=== PATIENT | female | born 1950 | race Caucasian/White ===

== ENCOUNTER 2017-07-07 12:28 | Emergency (ER) | payer MEDICARE ==
[~2017-07-07] VITALS: Ht 162.6 cm; Wt 106.0 kg
[2017-07-07] MEDS ORDERED: IOHEXOL 350 MG/ML 10 ML VIAL (for RAD DIAG) IVCONTRAST ONE (12:29)
[2017-07-07 12:38] VITALS: BP 140/77; PULSE 83; RESP 17; TEMP 98.2; O2SAT 97
[2017-07-07] MEDS ORDERED: VENL75TA PO (12:38)
[2017-07-07] MEDS ORDERED: OMEP10CA PO (12:38)
[2017-07-07] MEDS ORDERED: LEVO137T2 PO (12:38)
[2017-07-07] MEDS ORDERED: COQ-30CA2 PO (12:38)
[2017-07-07] MEDS ORDERED: LISI10TA PO (12:38)
[2017-07-07] MEDS ORDERED: LIDOCAINE HCL 1% 50 ML VIAL INFIL ONE (12:45)
[2017-07-07] MEDS ORDERED: TETANUS/DIPHTHERIA TOXOID ADULT 0.5 ML VIAL IM ONE (12:45)
--- NOTE | 2017-07-07 12:56 | PD ---
HPI Chief Complaint: Fall Time Seen by Provider: 12:36 Travel History International Travel<30 days: No Contact w/Intl Traveler<30days: No Traveled to known affect area: No History of Present Illness HPI 66-year-old female that presents to the ED for evaluation of fall. Patient had a mechanical fall today. Per patient she lost her balance will trying to load a car and none on the back of her head. She's been having pain in the back of the head. She did not lose consciousness. She states that she was not allowed to get up on her own by her friends on the ambulance and was put on a backboard and cervical collar. Per patient she has no neck or back pain. Per patient on her pain is in the back of the head. She did suffer a possible laceration to the back of her head. Per patient her headache currently 6 out of 10. She has a history of chronic arthritis. She denies any blurry vision or double vision. No back pain. No leg or arm pain. Per patient she has no other medical issues. Takes no blood thinners. Unclear of her last tetanus booster. Has not seen anybody for this. Other medical issues. Injury occurred one hour before coming. PFSH Past Medical History Hx Anticoagulant Therapy: No Arthritis: Yes High Cholesterol: Yes Hypertension: Yes Thyroid Disease: Yes Tetanus Vaccination: Unknown Influenza Vaccination: Yes Past Surgical History Abdominal Surgery: Yes (hernia repair) Genitourinary Surgery: Yes (bladder sx) Hysterectomy: Yes Tonsillectomy: Yes Social History Alcohol Use: Yes (vodka) Tobacco Use: No Substance Use: No Allergies-Medications (Allergen,Severity, Reaction): Coded Allergies: No Known Allergies (Unverified , 07/07/17) Reported Meds & Prescriptions Reported Meds & Active Scripts Active Reported Coq-10 (Coenzyme Q10 (Ubidecarenone)) 30 Mg Cap Unknown Dose PO DAILY Omeprazole 10 Mg Cap 10 Mg PO DAILY Effexor (Venlafaxine HCl) 75 Mg Tab 75 Mg PO DAILY Lisinopril-Hctz 10-12.5 Mg Tab 1 Tab PO DAILY Levothyroxine (Levothyroxine Sodium) 137 Mcg Tab 137 Mcg PO DAILY Review of Systems Except as stated in HPI: all other systems reviewed are Neg Physical Exam Narrative GENERAL: SKIN: Warm and dry. HEAD: Atraumatic. Normocephalic. EYES: Pupils equal and round 4 mms reactive to light and accommodation.. No scleral icterus. No injection or drainage. ENT: No nasal bleeding or discharge. Mucous membranes pink and moist. Tongue is midline. No uvula deviation. NECK: Trachea midline. No JVD. CARDIOVASCULAR: Regular rate and rhythm. RESPIRATORY: No accessory muscle use. Clear to auscultation. Breath sounds equal bilaterally. GASTROINTESTINAL: Abdomen soft, non-tender, nondistended. Hepatic and splenic margins not palpable. MUSCULOSKELETAL: Extremities without clubbing, cyanosis, or edema. No obvious deformities. No thoracic or lumbar spine tenderness to palpation. Patient does have some reproducible pain on the musculature of the cervical spine but not the spine itself. Patient does have a superficial abrasion to the back of the head that is less than 1 cm in diameter with no laceration noted. Minimal bleeding noted. Slightly tender to touch with swelling noted. Full range of motion of the upper and lower extremity bilaterally with no pain. NEUROLOGICAL: Awake and alert. No obvious cranial nerve deficits. Motor grossly within normal limits. Five out of 5 muscle strength in the arms and legs. Normal speech. PSYCHIATRIC: Appropriate mood and affect; insight and judgment normal. Data Data Last Documented VS Vital Signs Date Time Temp Pulse Resp B/P (MAP) Pulse Ox O2 Delivery O2 Flow Rate FiO2 07/07/17 16:54 95 20 137/67 (90) 97 Room Air 07/07/17 12:[address] Brain W/O Iv Contrast(Rout) (07/07/17 12:37) Ct Cerv Spine W/O Contrast (07/07/17 12:37) Tetanus/Diphtheria Tox Adult (Tetanus/Di (07/07/17 12:45) Lidocaine 1% Inj (50 Ml) (Xylocaine 1% I (07/07/17 12:45) Wound Care (07/07/17 12:39) Ibuprofen (Motrin) (07/07/17 13:30) Lidocaine 1% Inj (Xylocaine 1% Inj) (07/07/17 13:45) Complete Blood Count With Diff (07/07/17 14:05) Basic Metabolic Panel (Bmp) (07/07/17 14:05) Prothrombin Time / Inr (Pt) (07/07/17 14:05) Act Partial Throm Time (Ptt) (07/07/17 14:05) Magnesium (Mg) (3/22/18 14:05) Cta Neck W Iv Contrast W 3d (07/07/17 ) Cta Brain W Iv Contrast W 3d (07/07/17 ) Iohexol 350 Inj (Omnipaque 350 Inj) (07/07/17 12:29) Ed Discharge Order (07/07/17 18:01) Ibuprofen (Motrin) (07/07/17 18:15) Ed Discharge Order (07/07/17 18:03) Labs Laboratory Tests Test 07/07/17 14:40 White Blood Count 11.7 TH/MM3 Red Blood Count 4.36 MIL/MM3 Hemoglobin 14.1 GM/DL Hematocrit 41.1 % Mean Corpuscular Volume 94.4 FL Mean Corpuscular Hemoglobin 32.4 PG Mean Corpuscular Hemoglobin Concent 34.4 % Red Cell Distribution Width 12.8 % Platelet Count 218 TH/MM3 Mean Platelet Volume 8.2 FL Neutrophils (%) (Auto) 80.6 % Lymphocytes (%) (Auto) 10.7 % Monocytes (%) (Auto) 6.8 % Eosinophils (%) (Auto) 1.0 % Basophils (%) (Auto) 0.9 % Neutrophils # (Auto) 9.4 TH/MM3 Lymphocytes # (Auto) 1.3 TH/MM3 Monocytes # (Auto) 0.8 TH/MM3 Eosinophils # (Auto) 0.1 TH/MM3 Basophils # (Auto) 0.1 TH/MM3 CBC Comment DIFF FINAL Differential Comment Prothrombin Time 10.6 SEC Prothromb Time International Ratio 1.0 RATIO Activated Partial Thromboplast Time 27.1 SEC Blood Urea Nitrogen 18 MG/DL Creatinine 0.82 MG/DL Random Glucose 103 MG/DL Calcium Level 8.7 MG/DL Magnesium Level 1.8 MG/DL Sodium Level 137 MEQ/L Potassium Level 4.2 MEQ/L Chloride Level 101 MEQ/L Carbon Dioxide Level 28.8 MEQ/L Anion Gap 7 MEQ/L Estimat Glomerular Filtration Rate 70 ML/MIN MDM Medical Decision Making Medical Screen Exam Complete: Yes Emergency Medical Condition: Yes Medical Record Reviewed: Yes Interpretation(s) CBC & BMP Diagram 07/07/17 14:40 Calcium Level 8.7, Magnesium Level 1.[address] 07/07/17 [id number] Signed Impressions: Service Date/Time: June 13:01 - CONCLUSION: 1. No focal or acute intracranial hemorrhage. 2. Bilateral cortical atrophy. 3. Soft tissue swelling of the posterior scalp. Guzman Monterroso MD Cervical Spine CT 07/07/17 1237 Signed Impressions: Service Date/Time: June 13:01 - CONCLUSION: No acute bony injury in the cervical spine. Moderate smooth expansion of the left vertebral foramen at the C4 level. Vertebral artery aneurysm should be considered and further evaluation with CTA examination of the arch and cervical vessels would be recommended Justo Sullivan MD CTA negative for aneurysm Differential Diagnosis Head injury versus fall versus laceration versus abrasion Narrative Course 66-year-old female that presents to the ED for evaluation of mechanical fall. Patient was properly examined and was found to have signs and symptoms consistent appears to be mechanical fall. CTs of the head and neck were ordered. These were negative for acute bony injury but CT of the cervical spine showed finding concerning for possible aneurysm. They recommended CTA. This was discussed in my attending Dr. Franklin who recommends CTA of the brain and neck. This was ordered. This was negative for aneurysm or any other the acute disease. Patient was reassured. At this time this appears to be fall. Patient was told that she will likely have some headache and pain here and there. Told to take Motrin or Tylenol for pain. Patient was offered pain medication but declined. Per patient she prefers taking Motrin. She was given Motrin here. She was told to follow up closely with PCP this week. See ED if worsening symptoms. In regards to abrasion that does not require any suturing. Dressing was applied. Diagnosis Primary Impression: Head injury, acute Qualified Codes: S09.90XA - Unspecified injury of head, initial encounter Patient Instructions: General Instructions Additional Instructions: Motrin or Tylenol for pain. Ice to the area. Dizziness will improve in the next couple days. See ED for any worsening symptoms. Med/Other Pt SpecificInfo: Prescription(s) given Disposition: 01 DISCHARGE HOME Condition: Stable Jace Iraheta Jul 07, 2017 12:56
--- NOTE | 2017-07-07 13:16 | RADRPT ---
EXAM DATE/TIME: 07/07/2017 13:01 [facility] COMPARISON: No previous studies available for comparison. INDICATIONS : Fall. Struck back of head on ground. RADIATION DOSE: 56.35 CTDIvol (mGy) MEDICAL HISTORY : Hypertension. SURGICAL HISTORY : Hysterectomy. ENCOUNTER: Initial ACUITY: 1 day PAIN SCALE: 7/10 LOCATION: Bilateral occipital TECHNIQUE: Multiple contiguous axial images were obtained of the head. Using automated exposure control and adj ustment of the mA and/or kV according to patient size, radiation dose was kept as low as reasonably a chievable to obtain optimal diagnostic quality images. DICOM format image data is available electro nically for review and comparison. FINDINGS: CEREBRUM: The ventricles are normal for age. There is bilateral cortical atrophy. No evidence of midline shift, mass lesion, hemorrhage or acute infarction. No extra-axial fluid collections are seen. POSTERIOR FOSSA: The cerebellum and brainstem are intact. The 4th ventricle is midline. The cerebellopontine angle i s unremarkable. EXTRACRANIAL: The visualized portion of the orbits is intact. Soft tissue swelling along the posterior scalp. SKULL: The calvaria is intact. No evidence of skull fracture. CONCLUSION: 1. No focal or acute intracranial hemorrhage. 2. Bilateral cortical atrophy. 3. Soft tissue swelling of the posterior scalp. Guzman Monterroso MD on July 07, 2017 at 13:14 Board Certified Radiologist. This report was verified electronically.
[2017-07-07] MEDS ORDERED: IBUPROFEN 800 MG TAB PO ONE ×2 (13:30→18:15)
[2017-07-07] MEDS ORDERED: LIDOCAINE HCL 1% 30 ML VIAL INFIL ONE (13:45)
--- NOTE | 2017-07-07 13:57 | RADRPT ---
EXAM DATE/TIME: 07/07/2017 13:01 [facility] COMPARISON: No previous studies available for comparison. INDICATIONS : Fall, hit head, neck pain. RADIATION DOSE: 28.65 CTDIvol (mGy) MEDICAL HISTORY : Hypertension. SURGICAL HISTORY : Hysterectomy. ENCOUNTER: Initial ACUITY: 1 day PAIN SCALE: 4/10 LOCATION: Bilateral neck TECHNIQUE: Volumetric scanning of the cervical spine was performed. Multiplanar reconstructions in the sagittal, coronal and oblique axial planes were performed. Using automated exposure control and adjustment o f the mA and/or kV according to patient size, radiation dose was kept as low as reasonably achievable to obtain optimal diagnostic quality images. DICOM format image data is available electronically f or review and comparison. FINDINGS: Cervical spine alignment is satisfactory. There is no evidence of cervical spine fracture. There is m ild degenerative change with slight disc space narrowing most significantly at C6-7 and tiny endplate osteophytes. No evidence of canal or foraminal compromise. There is no evidence of paraspinal hematoma. There is moderate expansile enlargement of the left vertebral foramen at the C4 level. There is some bulbous prominence of the brachycephalic vessels in the visualized upper mediastinum. CONCLUSION: No acute bony injury in the cervical spine. Moderate smooth expansion of the left vertebral foramen at the C4 level. Vertebral artery aneurysm sh ould be considered and further evaluation with CTA examination of the arch and cervical vessels would be recommended Justo Sullivan MD on July 07, 2017 at 13:50 Board Certified Radiologist. This report was verified electronically.
[2017-07-07 14:51] LABS: AUTOMATED NEUTROPHIL # 9.4 TH/MM3 (1.8-7.7); BASOPHIL # 0.1 TH/MM3 (0-0.2); BASOPHIL % 0.9 % (0.0-2.0); EOSINOPHIL # 0.1 TH/MM3 (0-0.4); HEMATOCRIT 41.1 % (35.0-46.0); HEMOGLOBIN 14.1 GM/DL (11.6-15.3); LYMPH % 10.7 % (9.0-44.0); LYMPHOCYTE # 1.3 TH/MM3 (1.0-4.8); MEAN CELL VOLUME 94.4 FL (80.0-100.0); MEAN CORPUSCULAR HEMOGLOBIN 32.4 PG (27.0-34.0); MEAN CORPUSCULAR HGB CONC 34.4 % (32.0-36.0); MEAN PLATELET VOLUME 8.2 FL (7.0-11.0); MONO % 6.8 % (0.0-8.0); MONOCYTE # 0.8 TH/MM3 (0-0.9); NEUT % 80.6 % (16.0-70.0); PLATELET COUNT 218 TH/MM3 (150-450); RED BLOOD COUNT 4.36 MIL/MM3 (4.00-5.30); RED CELL DISTRIBUTION WIDTH 12.8 % (11.6-17.2); WHITE BLOOD COUNT 11.7 TH/MM3 (4.0-11.0)
[2017-07-07 14:59] LABS: PROTHROMBIN TIME - PATIENT 10.6 SEC (9.8-11.6)
[2017-07-07 15:03] LABS: BICARBONATE 28.8 MEQ/L (21.0-32.0); CALCIUM 8.7 MG/DL (8.5-10.1); CREATININE 0.82 MG/DL (0.50-1.00); MAGNESIUM 1.8 MG/DL (1.5-2.5)
[2017-07-07 16:54] VITALS: BP 137/67; PULSE 95; RESP 20; O2SAT 97
--- NOTE | 2017-07-07 17:37 | RADRPT ---
EXAM DATE/TIME: 07/07/2017 16:15 [facility] COMPARISON: CT CERVICAL SPINE W/O CONTRAST, July 07, 2017, 13:01. INDICATIONS : Abnormal cervical spine CT; evaluate for aneurysm. IV CONTRAST: 70 cc Omnipaque 350 (iohexol) IV ; Cumulative dose for multiple exams. RADIATION DOSE: 11.19 CTDIvol (mGy) ; Combined studies MEDICAL HISTORY : Hypertension. SURGICAL HISTORY : Hysterectomy. ENCOUNTER: Initial ACUITY: 1 day PAIN SCALE: 0/10 LOCATION: neck Elevated flow velocities and ICA/CCA ratios have been found to correlate with increased degrees of vessel stenosis, calculated as percentage of diameter relative to a normal segment of distal ICA/CCA. TECHNIQUE: Volumetric scanning was performed using a multirow detector CT scanner. The data was post processed with a variety of visualization algorithms including full-volume maximum intensity projection, multip lanar sliding thin-slab reformation, curved-planar reformation, and surface-rendering techniques. Us ing automated exposure control and adjustment of the mA and/or kV according to patient size, radiatio n dose was kept as low as reasonably achievable to obtain optimal diagnostic quality images. DICOM f ormat image data is available electronically for review and comparison. FINDINGS: AORTIC ARCH: The mass in either a mild man in error and are without about this Tuesday RIGHT CAROTID: The common carotid artery is intact. The carotid bulb has a normal configuration without ulceration o r narrowing. The internal carotid artery lumen is smooth without stenosis. The external carotid figueroa ry is intact. LEFT CAROTID: The common carotid artery is intact. The carotid bulb has a normal configuration without ulceration or narrowing. The internal carotid artery lumen is smooth without stenosis. The external carotid ar suleman is intact. VERTEBRALS: The vertebral arteries have a symmetric diameter. No stenotic lesions are seen. CONCLUSION: 1. The carotid circulation is widely patent. 2. There is no evidence of vertebral artery aneurysm. The enlargement of the vertebral foramina appea rs to be secondary to a loop within the vertebral artery. Johnnie العراقي MD on July 07, 2017 at 17:32 Board Certified Radiologist. This report was verified electronically.
--- NOTE | 2017-07-07 17:54 | RADRPT ---
EXAM DATE/TIME: 07/07/2017 16:15 [facility] COMPARISON: CT CERVICAL SPINE W/O CONTRAST, July 07, 2017, 13:01. CT BRAIN W/O CONTRAST, July 07, 2017, 13:01. INDICATIONS : Abnormal cervical spine CT; evaluate for aneurysm. IV CONTRAST: 70 cc Omnipaque 350 (iohexol) IV ; Cumulative dose for multiple exams. RADIATION DOSE: 11.19 CTDIvol (mGy) ; Combined studies MEDICAL HISTORY : Hypertension. SURGICAL HISTORY : Hysterectomy. ENCOUNTER: Initial ACUITY: 1 day PAIN SCALE: 0/10 LOCATION: cranial TECHNIQUE: Volumetric scanning was performed using a multi-row detector CT scanner. The data was post processed with a variety of visualization algorithms including full volume maximum intensity projection, multi -planar sliding thin slab reformation, curved planar reformation, and surface rendering techniques. Using automated exposure control and adjustment of the mA and/or kV according to patient size, radiat ion dose was kept as low as reasonably achievable to obtain optimal diagnostic quality images. DICO M format image data is available electronically for review and comparison. FINDINGS: There is excellent visualization of the major intracranial arteries out to the second-order branch ve ssels. There is no evidence for aneurysm, vessel truncation or stenosis, and no evidence for vascula r malformation. CONCLUSION: No significant stenosis, occlusion or aneurysm. Genaro Shine MD on July 07, 2017 at 17:50 Board Certified Radiologist. This report was verified electronically.
--- NOTE | 2017-07-07 18:02 | PD ---
Data Data Last Documented VS Vital Signs Date Time Temp Pulse Resp B/P (MAP) Pulse Ox O2 Delivery O2 Flow Rate FiO2 07/07/17 16:54 95 20 137/67 (90) 97 Room Air 07/07/17 12:[address] Brain W/O Iv Contrast(Rout) (07/07/17 12:37) Ct Cerv Spine W/O Contrast (07/07/17 12:37) Tetanus/Diphtheria Tox Adult (Tetanus/Di (07/07/17 12:45) Lidocaine 1% Inj (50 Ml) (Xylocaine 1% I (07/07/17 12:45) Wound Care (07/07/17 12:39) Ibuprofen (Motrin) (07/07/17 13:30) Lidocaine 1% Inj (Xylocaine 1% Inj) (07/07/17 13:45) Complete Blood Count With Diff (07/07/17 14:05) Basic Metabolic Panel (Bmp) (07/07/17 14:05) Prothrombin Time / Inr (Pt) (07/07/17 14:05) Act Partial Throm Time (Ptt) (07/07/17 14:05) Magnesium (Mg) (07/07/17 14:05) Cta Neck W Iv Contrast W 3d (07/07/17 ) Cta Brain W Iv Contrast W 3d (07/07/17 ) Iohexol 350 Inj (Omnipaque 350 Inj) (07/07/17 12:29) Labs Laboratory Tests Test 07/07/17 14:40 White Blood Count 11.7 TH/MM3 Red Blood Count 4.36 MIL/MM3 Hemoglobin 14.1 GM/DL Hematocrit 41.1 % Mean Corpuscular Volume 94.4 FL Mean Corpuscular Hemoglobin 32.4 PG Mean Corpuscular Hemoglobin Concent 34.4 % Red Cell Distribution Width 12.8 % Platelet Count 218 TH/MM3 Mean Platelet Volume 8.2 FL Neutrophils (%) (Auto) 80.6 % Lymphocytes (%) (Auto) 10.7 % Monocytes (%) (Auto) 6.8 % Eosinophils (%) (Auto) 1.0 % Basophils (%) (Auto) 0.9 % Neutrophils # (Auto) 9.4 TH/MM3 Lymphocytes # (Auto) 1.3 TH/MM3 Monocytes # (Auto) 0.8 TH/MM3 Eosinophils # (Auto) 0.1 TH/MM3 Basophils # (Auto) 0.1 TH/MM3 CBC Comment DIFF FINAL Differential Comment Prothrombin Time 10.6 SEC Prothromb Time International Ratio 1.0 RATIO Activated Partial Thromboplast Time 27.1 SEC Blood Urea Nitrogen 18 MG/DL Creatinine 0.82 MG/DL Random Glucose 103 MG/DL Calcium Level 8.7 MG/DL Magnesium Level 1.8 MG/DL Sodium Level 137 MEQ/L Potassium Level 4.2 MEQ/L Chloride Level 101 MEQ/L Carbon Dioxide Level 28.8 MEQ/L Anion Gap 7 MEQ/L Estimat Glomerular Filtration Rate 70 ML/MIN MDM Medical Record Reviewed: Yes Supervised Visit with ZOLTAN: Yes Narrative Course I, Dr. Franklin, have reviewed the advance practice practitioner's documentation and am in agreement, met with the patient face to face, made the diagnosis, and the medical decision making was done by me. *My assessment and Findings: Imaging is unremarkable. The patient had a mechanical fall and is now ready for discharge. Please refer to TERESSA Iraheta's documentation. Johnnie Franklin MD Jul 07, 2017 18:02
== END 2017-07-07 18:59 | disposition home or self-care (01) ==
LOC: NEPE 12:28
DX: S09.90XA Unspecified injury of head, initial encounter (principal); I10 Essential (primary) hypertension; E78.00 Pure hypercholesterolemia, unspecified; E07.9 Disorder of thyroid, unspecified; M19.90 Unspecified osteoarthritis, unspecified site; W19.XXXA Unspecified fall, initial encounter; Z23 Encounter for immunization; Z79.899 Other long term (current) drug therapy
CPT/HCPCS: 70450; 70496; 70498; 72125; 80048; 83735; 85025; 85610; 85730; 90471; 90714; 96372; 99284; Q9967